=== PATIENT | female | born 1985 | race Caucasian/White ===

== ENCOUNTER 2017-11-16 09:02 | Day surgery (SDC) | payer BC ==
[~2017-11-16] VITALS: Ht 170.2 cm; Wt 135.0 kg
[~2017-11-16 09:02] MED LIST: BUPIVACAINE/PF 0.5% ONE; EPINEPHRINE 1 MG/ML, 1ML ONE
[2017-11-16] MEDS ORDERED: CHOL200059 PO (09:45)
[2017-11-16] MEDS ORDERED: LACTATED RINGERS 1,000 ML IV SCH (09:46)
[2017-11-16 09:53] VITALS: BP 121/86
[2017-11-16] MEDS ORDERED: SCOPOLAMINE PATCH, 1.5MG PATCH.TD72 TD STA (10:09)
[2017-11-16] MEDS ORDERED: SCOPOLAMINE PATCH, 1.5MG PATCH.TD72 TD ONE (10:11)
[2017-11-16] MEDS ORDERED: LABETALOL 5MG/ML, 20ML IV PRN (10:30)
[2017-11-16] MEDS ORDERED: OXYcodone 5 MG/5 ML ORAL.SOL UDC PO PRN (10:30)
[2017-11-16] MEDS ORDERED: ALBUTEROL SULFATE 2.5 MG/3 ML NPPB PRN (10:30)
[2017-11-16] MEDS ORDERED: METOPROLOL 1 MG/ML, 5ML IV PRN (10:30)
[2017-11-16] MEDS ORDERED: hydrALAzine 20 MG/ML, 1ML IV PRN (10:30)
[2017-11-16] MEDS ORDERED: morphine SULFATE 10 MG/ML, 1ML IV PRN (10:30)
[2017-11-16] MEDS ORDERED: ONDANSETRON 2MG/ML, 2ML IVPush PRN (10:30)
[2017-11-16] MEDS ORDERED: EPHEDRINE 50 MG/ML, 1ML IVPush PRN (10:30)
[2017-11-16] MEDS ORDERED: PROMETHAZINE 25 MG/ML, 1ML IV PRN (10:30)
[2017-11-16] MEDS ORDERED: ACETAMINOPHEN 325 MG TABLET PO PRN (10:30)
[2017-11-16] MEDS ORDERED: MEPERIDINE/PF 25MG/0.5ML IVPush PRN (10:30)
[2017-11-16] MEDS ORDERED: FENTANYL PF 250 MCG/5ML ONE (10:33)
[2017-11-16] MEDS ORDERED: MIDAZOLAM 1 MG/ML, 2ML ONE (10:33)
[2017-11-16] MEDS ORDERED: PROPOFOL 10 MG/ML, 50ML ONE (10:56)
[2017-11-16] MEDS ORDERED: SUCCINYLCHOLINE 20 MG/ML, 10ML ONE (11:13)
[2017-11-16] MEDS ORDERED: PROPOFOL 10 MG/ML, 20ML ONE (11:13)
[2017-11-16] MEDS ORDERED: DEXAMETHASONE 4 MG/ML, 1ML ONE ×2 (11:17)
[2017-11-16] MEDS ORDERED: ONDANSETRON 2MG/ML, 2ML ONE (12:25)
[2017-11-16] MEDS ORDERED: ACETAMINOPHEN 650 MG/20.3 ML UDC ONE (12:45)
[2017-11-16] MEDS ORDERED: FENTANYL PF 100 MCG/2ML ONE ×2 (12:45→13:05)
[2017-11-16] MEDS ORDERED: OXYcodone 5 MG/5 ML ORAL.SOL UDC ONE (12:46)
[2017-11-16] MEDS: FENTANYL PF 100 MCG/2ML IV PRN ×6 (12:48→13:20)
== END 2017-11-16 15:10 ==
LOC: OUT 09:02
PROVIDERS: ATTEND Surgery
DX: E04.1 Nontoxic single thyroid nodule (principal); E66.9 Obesity, unspecified; Z68.42 Body mass index [BMI] 45.0-49.9, adult
CPT/HCPCS: 60220; 81025; 88307; 88333; C1760; J0171; J0330; J1100; J2250; J2405; J2704; J3010; J3490; J7120